=== PATIENT | male | born 1975 | race Caucasian/White ===

== ENCOUNTER → 2021-09-19 | Outpatient (CLI) | payer OTHER | LOC: EXRD 14:11 | DX: M79.661 Pain in right lower leg (principal) | CPT/HCPCS: 93971 ==

== ENCOUNTER → 2021-12-03 | Outpatient (CLI) | payer OTHER | LOC: EXRD 10:21 | DX: M54.6 Pain in thoracic spine (principal); M54.2 Cervicalgia; V89.2XXA Person injured in unspecified motor-vehicle accident, traffic, initial encounter; M47.812 Spondylosis without myelopathy or radiculopathy, cervical region | CPT/HCPCS: 72040; 72070 ==